=== PATIENT | male | born 1925 | race Caucasian/White ===

== ENCOUNTER 2016-09-27 11:45 | Day surgery (SDC) | payer MEDICARE, OTHER ==
[2016-09-24 14:42] LABS: BASOPHILS 1.1 %; BASOPHILS ABSOLUTE 0.08 10/3/uL (0.0-0.16); EOSINOPHILS 5.2 %; EOSINOPHILS ABSOLUTE 0.38 10/3/uL (0.0-0.53); HEMATOCRIT 38.9 % (40.0-51.0); HEMOGLOBIN 13.1 g/dL (13.6-17.8); IMMATURE GRANULOCYTES 0.1 %; IMMATURE GRANULOCYTES ABSOLUTE 0.01 10/3/uL (0.0-0.11); LYMPHOCYTES 30.8 %; LYMPHOCYTES ABSOLUTE 2.25 10/3/uL (0.67-4.30); MEAN CORPUS HGB CONC 33.7 g/dL (32.0-36.0); MEAN CORPUSCULAR HEMOGLOB 31.3 pg (26.0-34.0); MEAN CORPUSCULAR VOLUME 93.1 fL (80-100); MEAN PLATELET VOLUME 11.7 fL (9.2-13.0); NEUTROPHILS 51.8 %; NEUTROPHILS ABSOLUTE 3.78 10/3/uL (2.02-8.40); PLATELET COUNT 161 10/3/uL (150-400); RBC DISTRIBUTION WIDTH 13.3 % (12.0-16.0); RED CELL COUNT 4.18 10/6/uL (4.7-6.1); WHITE BLOOD CELLS 7.3 10/3/uL (4.5-10.5)
[2016-09-24 14:43] LABS: MANUAL DIFF NO %
[2016-09-24 15:02] LABS: BUN (BLOOD UREA NITROGEN) 22 MG/DL (6-23); CALCIUM, SERUM 9.3 MG/DL (8.5-10.4); CHLORIDE, SERUM 109 MMOL/L (96-112); CO2 (CARBON DIOXIDE) 28 MMOL/L (24-34); CREATININE 1.24 MG/DL (0.70-1.30); GFR AFRICAN AMERICAN 59 ML/MIN (>=60); GFR NON AFRICAN AMERICAN 51 ML/MIN (>=60); GLUCOSE, SERUM 97 MG/DL (60-99); POTASSIUM, SERUM 4.9 MMOL/L (3.5-5.3); SODIUM, SERUM 142 MMOL/L (135-148)
--- NOTE | ~2016-09-27 | OP ---
Record Of Operation [facility] [address] [place]. [address] NAME: RAÚL SHAW : [birth year] STATUS : [facility]#: [id number] AGE: 89 ADM/REG DATE : 09/27/16 MR#: [id number] REPORT SERV DATE: 09/27/16 DICTATED BY: EDMUND GARZA III DATE: 09/27/16 REPORT STATUS : Draft TRANSCRIBED BY: MODL DATE: 09/27/16 DATE OF PROCEDURE: 09/27/2016 PROCEDURE: Right hydrocelectomy. PREOPERATIVE DIAGNOSIS: Right hydrocele. POSTOPERATIVE DIAGNOSIS: Right hydrocele. ANESTHESIA: General. SURGEON: Edmund Garza M.D. PROCEDURE IN DETAIL: Following induction of adequate general anesthesia, the patient was prepped and draped in a sterile fashion. A horizontal incision was made over the scrotum. The hydrocele was delivered. It was eccentrically placed posteriorly and inferiorly. The testicle and hydrocele were delivered through the scrotum. Hydrocele sac was opened, and the contents explored. The testicle was normal. There was no communication with the inguinal area. The opened hydrocele sac was then gently wrapped around the testicle to sin it around the testicle. 3-0 chromic was used to do this. The cord was not constricted. The testicle was placed back in its anatomic position. Irrigation was done. Hemostasis was excellent. A two-layer closure was done with a running locking layer on the dartos fascia in a running layer on the skin. The patient tolerated the procedure well. Blood loss was nil. A Shaw drain was left secured with 3-0 chromic and a safety pin for removal in 24 hours. OB/MODL Edmund Garza III, M.D. / [id number] CC: Edmund Garza III, M.D. NO PCP
[~2016-09-27 11:45] MED LIST: ADVIL PO; ASAB PO; NORV10 PO; PRIN10; PRIN10 PO; PROSCAR5 PO; TIMOLOL MAL0.5 % OPH; XALAT OPH
== END 2016-09-27 18:47 | disposition home or self-care (01) ==
LOC: SDC 11:45
PROVIDERS: Urology
PROC: 0VBF0ZZ Excision of Right Spermatic Cord, Open Approach (ICD-10-PCS; principal; 2016-09-27 13:15)
DX: N43.3 Hydrocele, unspecified (principal); I10 Essential (primary) hypertension; G47.30 Sleep apnea, unspecified; M19.90 Unspecified osteoarthritis, unspecified site; Z98.890 Other specified postprocedural states; Z87.891 Personal history of nicotine dependence
CPT/HCPCS: 71020; 80048; 85025; 93005; J2405; J3010